=== PATIENT | female | born 1980 | race Two or more races ===

== ENCOUNTER 2019-06-13 09:06 | Emergency (ER) | payer MEDICAID ==
[~2019-06-13] VITALS: Ht 152.4 cm; Wt 68.0 kg
[2019-06-13 09:23] VITALS: BP 177/11
--- NOTE | 2019-06-13 10:04 | NUR ---
SEEN AND EXAMINED BY .
[2019-06-13] MEDS ORDERED: LORAZEPAM 0.5 MG TABLET ONE (10:20)
[2019-06-13] MEDS ORDERED: IBUPROFEN 600 MG TABLET PO ONE ×2 (10:20→10:30)
[2019-06-13] MEDS ORDERED: LORAZEPAM 1 MG TABLET PO ONE (10:30)
--- NOTE | 2019-06-13 10:44 | NUR ---
Patient discharged to home in stable condition. Written and verbal after care instructions given. Patient verbalizes understanding of instruction.
== END 2019-06-13 10:44 | disposition home or self-care (01) ==
LOC: ER 09:07
DX: S16.1XXA Strain of muscle, fascia and tendon at neck level, initial encounter (principal); F41.9 Anxiety disorder, unspecified; V49.49XA Driver injured in collision with other motor vehicles in traffic accident, initial encounter; Y93.89 Activity, other specified; Y92.413 State road as the place of occurrence of the external cause; Y99.8 Other external cause status